=== PATIENT | male | born 1935 | race Caucasian/White ===

== ENCOUNTER → 2018-09-18 | Outpatient (REF) | payer MEDICARE, BC ==
[2018-09-18 09:38] LABS: HEMATOCRIT 42.6 % (39.0-50.0); HEMOGLOBIN 14.3 g/dl (14.0-18.0); MEAN CORPUSCULAR HGB 31.2 pG CALC (26.0-32.0); MEAN CORPUSCULAR HGB CONC 33.6 g/L CALC (32.0-36.0); RED BLOOD COUNT 4.58 mill/uL (4.70-6.10); RED CELL DISTRI WIDTH 12.6 % (11.5-15.5)
[2018-09-18 10:42] LABS: ALBUMIN 3.7 g/dL (3.2-5.0); BILIRUBIN, TOTAL 0.7 mg/dL (0.0-1.4); CHOLESTEROL HDL RATIO 2.5 (<4.4 (CALC)); CREATININE 1.5 mg/dL (0.7-1.3); POTASSIUM 3.9 mmol/l (3.5-5.1); TOTAL PROTEIN 6.1 g/dL (6.3-8.2)
[2018-09-18 11:07] LABS: TSH, 3RD GENERATION 3.3 uIU/mL (0.47 - 4.68)
== END | disposition home or self-care (01) ==
LOC: LAB 08:57
PROVIDERS: ATTEND Nurse Practitioner
DX: I10 Essential (primary) hypertension (principal); N18.3 Chronic kidney disease, stage 3 (moderate)

== ENCOUNTER → 2018-10-07 | Outpatient (REF) | payer MEDICARE, BC ==
[2018-10-07 11:31] LABS: HEMATOCRIT 46.5 % (39.0-50.0); HEMOGLOBIN 15.3 g/dl (14.0-18.0); MEAN CELL VOLUME 92.3 fL CALC (80.0-100.0); MEAN CORPUSCULAR HGB 30.4 pG CALC (26.0-32.0); MEAN CORPUSCULAR HGB CONC 32.9 g/L CALC (32.0-36.0); RED BLOOD COUNT 5.04 mill/uL (4.70-6.10); RED CELL DISTRI WIDTH 12.9 % (11.5-15.5)
[2018-10-07 11:55] LABS: ALBUMIN 4.2 g/dL (3.2-5.0); BILIRUBIN, TOTAL 1.1 mg/dL (0.0-1.4); CHOLESTEROL HDL RATIO 2.7 (<4.4 (CALC)); CREATININE 1.6 mg/dL (0.7-1.3); POTASSIUM 4.1 mmol/l (3.5-5.1); TOTAL PROTEIN 6.7 g/dL (6.3-8.2)
[2018-10-07 12:25] LABS: TSH, 3RD GENERATION 4.37 uIU/mL (0.47 - 4.68)
== END | disposition home or self-care (01) ==
LOC: LAB 11:00
PROVIDERS: ATTEND Nurse Practitioner
DX: I10 Essential (primary) hypertension (principal); N18.3 Chronic kidney disease, stage 3 (moderate)

== ENCOUNTER 2022-06-27 17:14 | Emergency (ER) | payer MEDICARE, BC ==
[~2022-06-27] VITALS: Ht 175.3 cm; Wt 69.1 kg
[2022-06-27] VITALS (26 sets, daily range): BP systolic 108–150; BP diastolic 56–115
[2022-06-28 00:01] VITALS: BP 142/93
[2022-06-28 00:15] VITALS: BP 128/68
[2022-06-28 00:25] VITALS: BP 128/68
== END 2022-06-28 00:26 | disposition short-term general hospital (02) ==
LOC: ED 17:14
PROC: 0HQ1XZZ Repair Face Skin, External Approach (ICD-10-PCS; principal; 2022-06-27)
DX: S12.112A Nondisplaced Type II dens fracture, initial encounter for closed fracture (principal); S01.112A Laceration without foreign body of left eyelid and periocular area, initial encounter; S00.81XA Abrasion of other part of head, initial encounter; S51.012A Laceration without foreign body of left elbow, initial encounter; W01.0XXA Fall on same level from slipping, tripping and stumbling without subsequent striking against object, initial encounter; Y92.481 Parking lot as the place of occurrence of the external cause

== ENCOUNTER 2023-01-23 19:43 | Emergency (ER) | payer MEDICARE ==
[~2023-01-23] VITALS: Ht 175.3 cm; Wt 68.0 kg
[2023-01-23] VITALS (7 sets, daily range): BP systolic 112–137; BP diastolic 56–67
[2023-01-23] MEDS ORDERED: BACTRIM DS1 TAB PO (21:08)
== END 2023-01-23 21:37 | disposition home or self-care (01) ==
LOC: ED 19:43
PROC: 0HQDXZZ Repair Right Lower Arm Skin, External Approach (ICD-10-PCS; principal; 2023-01-23)
DX: S51.811A Laceration without foreign body of right forearm, initial encounter (principal); I25.10 Atherosclerotic heart disease of native coronary artery without angina pectoris; I25.2 Old myocardial infarction; N40.0 Benign prostatic hyperplasia without lower urinary tract symptoms; W22.03XA Walked into furniture, initial encounter; Y92.009 Unspecified place in unspecified non-institutional (private) residence as the place of occurrence of the external cause